=== PATIENT | male | born 1950 | race Hispanic/Latino ===

== ENCOUNTER 2017-11-29 10:00 | Day surgery (SDC) | payer MEDICARE ==
[2017-11-22 11:47] VITALS: BMI 25.8
[2017-11-29] MEDS ORDERED: Propofol 10 mg/ml Inj (20 ML) ONE (11:58)
[2017-11-29] MEDS ORDERED: Lidocaine 2% Jelly (Uro-Jet) ONE (11:59)
[2017-11-29] MEDS ORDERED: Ciprofloxacin 400mg/200ml D5W 400 MG/200 ML BAG IVPB ONE (11:59)
--- NOTE | 2017-11-29 13:07 | RAD ---
HISTORY: BLADDER STONE COMPARISON: No prior. FINDINGS: BOWEL: Nonobstructive/nonspecific bowel gas pattern. BONES: Osseous structures intact. Multilevel degenerative spondylosis of the lumbosacral spine. OTHER FINDINGS: Metallic clips seen in the right parasagittal upper/mid abdomen and right lower abdomen just above the iliac wing. Clinic correlation with surgical history. There is a small calcification right parasagittal inferior true pelvis which appears represent a tiny calcified phlebolith with small urinary bladder calculus not excluded. IMPRESSION: There is a small calcification right parasagittal inferior true pelvis which appears represent a tiny calcified phlebolith with small urinary bladder calculus not excluded
[2017-11-29] MEDS ORDERED: Lactated Ringer's 1,000 ML IV ONE ×2 (15:14)
--- NOTE | 2017-11-29 15:25 | PCM.SURG1 ---
Surgeon's Initial Post Op Note - Surgeon's Notes Surgeon: libby mark Programming Engineer: none Type of Anesthesia: General Endo, General IV Anesthesia Administered By: Lele Pre-Operative Diagnosis: bph bladder calculus 2x. Operative Findings: bph bladder calculus 2x.prostatitis. Post-Operative Diagnosis: bph.bladder calculus 2x. prostatitis. Operation Performed: cystoscopy. laser lithotripsy bladder [id number] Specimen/Specimens Removed: bladder calculus fragmaents Estimated Blood Loss: EBL {In ML}: 5 Blood Products Given: N/A Drains Used: No Drains Post-Op Condition: Good Date of Surgery/Procedure: 11/30/17 Time of Surgery/Procedure: 15:31
[2017-11-29] MEDS: HYDROmorphone 0.5 mg/0.5 ml ISec IVP PRN ×2 (15:34→16:01)
[2017-11-29 15:56] LABS: ALB/GLOB RATIO 1.2 (1.0-2.1); ALBUMIN 3.7 g/dL (3.5-5.0); ALT/SGPT 37 U/L (21-72); AST/SGOT 34 U/L (17-59); BLOOD UREA NITROGEN 23 mg/dL (9-20); CALCIUM 8.8 mg/dl (8.6-10.4); GFR AFRICAN-AMERICAN > 60; GFR NON-AFRICAN AMERICAN > 60
[2017-11-29 16:07] VITALS: O2SAT 100
[2017-11-29 16:59] VITALS: BP 127/72; PULSE 88; RESP 18; TEMP 97
--- NOTE | 2017-12-01 06:58 | OP ---
PROCEDURE DATE: 11/29/2017 PREOPERATIVE DIAGNOSES: Benign prostatic hyperplasia, bladder calculus numbering 2. POSTOPERATIVE DIAGNOSES: Benign prostatic hyperplasia, bladder calculus number 2 and prostatitis. SURGEON: Richard Oconnell MD. PROCEDURE: Laser lithotripsy of one stone. FINDINGS: Marked trabeculated bladder, no tumor were observed, 2 large 2.5 cm in size hard bladder calculus, brownish in color, good bladder capacity, urethral orifices is normal placed and in configuration and large lateral lobes of the prostatic gland, meeting at the midline. The prostatic urethra is slightly elongated. Membranous and penile urethra normal. TECHNIQUE: This patient was placed in a lithotomy position. The external genitalia was prepped and draped in the usual sterile fashion. A #22 panendoscope was introduced into the bladder under direct vision, finding as above. Using a laser fiber at 1 watt of energy one of the stone was lasered continuously with difficulties and difficult fragmentation because of the hardiness of the stone. Large fragment were reduced in size with laser. Prostate bleeding was present, making difficult the fragmentation. The second stone was left for a second stage fragmentation in about a week. Fragments of the first stone was removed by way of Vernell syringe. A #22 ____ Cam was left indwelling to be connected to a gravity drainage. The patient withstood the procedure well and returned to the recovery room in satisfactory condition. Richard Oconnell MD
== END 2017-11-29 17:02 | disposition home or self-care (01) ==
LOC: C.SDS 10:00
PROVIDERS: ATTEND Urology
DX: N21.0 Calculus in bladder (principal); R31.0 Gross hematuria; N40.0 Benign prostatic hyperplasia without lower urinary tract symptoms; I10 Essential (primary) hypertension; E11.9 Type 2 diabetes mellitus without complications
CPT/HCPCS: 36415; 52318; 74018; 80053; 82365; 82948; 88300; A4358; J0744; J1170; J7120

== ENCOUNTER 2017-12-07 09:43 | Day surgery (SDC) | payer MEDICARE ==
[2017-11-22 11:47] VITALS: BMI 25.8
[2017-12-07] MEDS ORDERED: Lactated Ringer's 1,000 ML IV ONE ×2 (11:00→14:50)
[2017-12-07] MEDS ORDERED: Propofol 10 mg/ml Inj (20 ML) ONE (11:04)
[2017-12-07] MEDS ORDERED: Ciprofloxacin 400mg/200ml D5W 400 MG/200 ML BAG IVPB ONE (11:15)
--- NOTE | 2017-12-07 14:29 | PCM.SURG1 ---
Surgeon's Initial Post Op Note - Surgeon's Notes Surgeon: hugo Paving And Surfacing Labourer: none Type of Anesthesia: General Endo Anesthesia Administered By: Vic Pre-Operative Diagnosis: bladder calculus. Operative Findings: bladder calculus. bph Post-Operative Diagnosis: bladder calculus bph Operation Performed: cystoscopy laser lithotripsy bladder calculus. Specimen/Specimens Removed: bladder stone fragments. Estimated Blood Loss: EBL {In ML}: 10 Blood Products Given: N/A Drains Used: No Drains Post-Op Condition: Good Date of Surgery/Procedure: 12/07/17 Time of Surgery/Procedure: 14:31
[2017-12-07] MEDS: HYDROmorphone 0.5 mg/0.5 ml ISec IVP PRN ×2 (14:45→15:20)
[2017-12-07 16:54] VITALS: BP 146/79; PULSE 75; RESP 22; TEMP 97.1; O2SAT 96
--- NOTE | 2017-12-09 17:24 | PROCN ---
DATE OF PROCEDURE: 12/07/2017 PREOPERATIVE DIAGNOSIS: Bladder calculus. POSTOPERATIVE DIAGNOSES: Benign prostatic hyperplasia, bladder calculus. OPERATION: Cystoscopy with laser lithotripsy of bladder calculus. SURGEON: Richard Oconnell MD GROSS FINDINGS: Marked bladder, no tumors were found in the bladder. Large bladder calculus present in the bladder about 2 cm in size with bladder capacity. Urethral orifices normal in place and configuration. Large prostrate gland, membranous and pendulous, urethra normal. TECHNIQUE: This patient was placed in the lithotomy position. The external genitalia were prepped and draped in the usual sterile fashion. A #22 panendoscope was introduced in the bladder under direct vision and using laser fiber with the margin setting at 50 joules and 30 calzada, the stone was fragmented slowly with difficulties because the stone was hard in character. After fragmentation was completed, the fragments were removed by way of Vernell syringe. No major bleeding was present during the procedure. A #22 Cam was left indwelling to be connected to gravity drainage. The patient withstood the procedure well and returned to recovery room in satisfactory condition. Richard Oconnell MD
== END 2017-12-07 16:35 | disposition home or self-care (01) ==
LOC: C.SDS 09:43
PROVIDERS: ATTEND Urology
DX: N21.0 Calculus in bladder (principal); R31.0 Gross hematuria; N40.1 Benign prostatic hyperplasia with lower urinary tract symptoms
CPT/HCPCS: 52317; 82365; 82948; 88300; J0744; J1170; J7120

== ENCOUNTER 2017-12-22 08:40 | Inpatient (IN) | payer MEDICARE ==
[2017-11-22 11:47] VITALS: BMI 25.8
[2017-12-22] MEDS ORDERED: Ciprofloxacin 400mg/200ml D5W 400 MG/200 ML BAG IVPB ONE (10:11)
[2017-12-22] MEDS: HYDROmorphone 0.5 mg/0.5 ml ISec IVP PRN ×2 (12:45→14:20)
[2017-12-22] MEDS ORDERED: Oxycodone/Acetaminophen 5/325 mg Tab PO PRN (13:13)
[2017-12-22] MEDS ORDERED: Ciprofloxacin 400mg/200ml D5W 400 MG/200 ML BAG IVPB SCH (13:30)
[2017-12-22] MEDS ORDERED: Lactated Ringer's 1,000 ML IV ONE (14:00)
[2017-12-22] MEDS: Lactated Ringer's 1,000 ML IV SCH (15:21)
[2017-12-22 15:51] VITALS: RESP 20
[2017-12-22] MEDS: Ciprofloxacin 400mg/200ml D5W 400 MG/200 ML BAG IVPB SCH (21:34)
--- NOTE | 2017-12-23 04:49 | OP ---
PROCEDURE DATE: 12/22/2017 PREOPERATIVE DIAGNOSES: Benign prostatic hypertrophy, acute urinary retention. POSTOPERATIVE DIAGNOSES: Benign prostatic hypertrophy, acute urinary retention. OPERATION: Transurethral resection of the prostate gland. SURGEON: Richard Oconnell MD GROSS FINDINGS: Good bladder capacity. No tumors were observed in the bladder. A small fragment of a stone was present. Marked trabeculated bladder. Ureteral orifices normally placed and in configuration. Enlarged lateral lobes of the prostate gland meeting at the midline. Slightly elongated prostatic urethra. Membranous and pendulous urethra normal. TECHNIQUE: This patient was placed in a lithotomy position. The external genitalia was prepped and draped in the usual sterile fashion. The urethra was dilated to #28 Ute sounds. A #26 laser resectoscope was introduced into the bladder. Findings as above. Resection of the prostate gland was started at the bladder neck on the right lateral lobe. The resection was carried down distally, close to the verumontanum without injuring this structure. In the same manner, the left lateral lobe was resected. Bleeders were thoroughly fulgurated. Then the floor of the prostatic urethra and finally the roof of the prostatic urethra was also resected. Again, bleeders were thoroughly fulgurated. Tissue was removed by way of a Vernell syringe. A #22 three-way Cam was left indwelling to be connected to a continued bladder irrigation with normal saline. The patient withstood the procedure well and returned to the recovery room in satisfactory condition. Richard Oconnell MD
[2017-12-23] MEDS: Lactated Ringer's 1,000 ML IV SCH (05:02)
[2017-12-23 08:11] VITALS: TEMP 98.4; O2SAT 97
[2017-12-23] MEDS: Ciprofloxacin 400mg/200ml D5W 400 MG/200 ML BAG IVPB SCH (09:20)
[2017-12-23 09:27] VITALS: BP 135/84; PULSE 76
[2017-12-23] MEDS ORDERED: Pantoprazole 40 mg EC Tab PO SCH (10:00)
[2017-12-23] MEDS ORDERED: GlipiZIDE 10 mg SR Tab PO SCH (10:00)
[2017-12-23] MEDS ORDERED: Metoprolol Succinate 25 mg XL Tab PO SCH (10:00)
== END 2017-12-23 11:45 | disposition home or self-care (01) | DRG 714 ==
LOC: C.SDS 08:40 → EDSTATUS 10:00 → C.9E 12:39 → C.9S 13:10 → C.6T 14:29
PROVIDERS: ADMIT Urology; ATTEND Urology
PROC: 0VT08ZZ Resection of Prostate, Via Natural or Artificial Opening Endoscopic (ICD-10-PCS; principal; 2017-12-22 10:00)
DX: N40.1 Benign prostatic hyperplasia with lower urinary tract symptoms (principal); R33.8 Other retention of urine